=== PATIENT | female | born 1980 | race Caucasian/White ===

== ENCOUNTER → 2020-12-16 | Outpatient (CLI) | payer OTHER | LOC: EXRD 10:00 | DX: J18.9 Pneumonia, unspecified organism (principal); R91.8 Other nonspecific abnormal finding of lung field; Z87.891 Personal history of nicotine dependence | CPT/HCPCS: 71046 ==

== ENCOUNTER → 2020-12-26 | Outpatient (CLI) | payer OTHER | LOC: CT 07:21 | DX: R09.02 Hypoxemia (principal); Z87.09 Personal history of other diseases of the respiratory system; R91.8 Other nonspecific abnormal finding of lung field; R59.0 Localized enlarged lymph nodes | CPT/HCPCS: 36600; 71260; 82803; Q9967 ==

== ENCOUNTER → 2020-12-28 | Outpatient (CLI) | payer OTHER | LOC: HEART 5 15:10 | DX: R06.02 Shortness of breath (principal); R94.2 Abnormal results of pulmonary function studies; F17.210 Nicotine dependence, cigarettes, uncomplicated | CPT/HCPCS: 94060; 94729 ==

== ENCOUNTER → 2021-06-15 | Outpatient (CLI) | payer OTHER | LOC: EXRD 11:44 | DX: Z87.09 Personal history of other diseases of the respiratory system (principal); R91.8 Other nonspecific abnormal finding of lung field | CPT/HCPCS: 71046 ==

== ENCOUNTER → 2021-07-05 | Outpatient (CLI) | payer OTHER | LOC: EXRD 14:03 | DX: R06.02 Shortness of breath (principal); J18.9 Pneumonia, unspecified organism | CPT/HCPCS: 71046 ==

== ENCOUNTER → 2021-08-04 | Outpatient (CLI) | payer OTHER | LOC: RT 12:02 | DX: R09.02 Hypoxemia (principal) | CPT/HCPCS: 36600; 82803 ==

== ENCOUNTER → 2021-08-04 | Outpatient (CLI) | payer OTHER | LOC: KOH-I 10:30 | DX: Z87.09 Personal history of other diseases of the respiratory system (principal); R91.8 Other nonspecific abnormal finding of lung field | CPT/HCPCS: 71250 ==

== ENCOUNTER → 2021-08-28 | Outpatient (CLI) | payer OTHER | LOC: EXRD 11:34 | DX: Z00.00 Encounter for general adult medical examination without abnormal findings (principal); R91.8 Other nonspecific abnormal finding of lung field | CPT/HCPCS: 71046 ==

== ENCOUNTER 2021-09-18 19:15 | Emergency (ER) | payer OTHER | END 2021-09-18 20:57 | disposition left against medical advice (07) | LOC: ER1 19:15 | DX: Z53.21 Procedure and treatment not carried out due to patient leaving prior to being seen by health care provider (principal) ==